=== PATIENT | female | born 2005 | race Caucasian/White ===

== ENCOUNTER 2025-03-16 00:51 | Emergency (ER) | payer SELFPAY ==
[~2025-03-16] VITALS: Ht 167.6 cm; Wt 71.6 kg
[2025-03-16 01:25] LABS: BASOPHILS % (AUTO) 0.4 % (0-1); EOSINOPHILS # (AUTO) 0.1 X10'3 (0-0.9); EOSINOPHILS % (AUTO) 1.7 % (0-6); HEMATOCRIT 39.8 % (35.0-45.0); HEMOGLOBIN 13.5 g/dl (12.0-16.0); LYMPHOCYTES # (AUTO) 1.6 X10'3 (1.1-4.8); LYMPHOCYTES % (AUTO) 26.2 % (21-51); MEAN CORPUSCULAR HEMOGLOBIN 30.8 PG (27.0-31.0); MEAN CORPUSCULAR VOLUME 90.5 FL (78-98); MEAN PLATELET VOLUME 7.5 FL (7.4-10.4); MONOCYTES # (AUTO) 0.6 X10'3 (0-0.9); NEUTROPHILS # (AUTO) 3.9 X10'3 (1.8-7.7); NEUTROPHILS % (AUTO) 62.7 % (42-75); PLATELET COUNT 201 X10'3 (140-440); RED CELL DISTRIBUTION WIDTH 12.5 % (11.5-14.5); WHITE BLOOD COUNT 6.3 X10'3 (4.5-11.0)
[2025-03-16 01:54] LABS: URINE HCG POSITIVE (NEG)
[2025-03-16 01:55] LABS: BILIRUBIN,URINE NEGATIVE (Neg); CLARITY,URINE CLOUDY (Clear); COLOR,URINE YELLOW (Yellow); GLUCOSE, URINE NEGATIVE (Neg); KETONES,URINE NEGATIVE (Neg); LEUKOCYTE ESTERASE ,URINE LARGE (Neg); NITRITES, URINE NEGATIVE (Neg); OCCULT BLOOD,URINE SMALL (Neg); PROTEIN,URINE NEGATIVE (Neg); UROBILINOGEN,URINE 0.2 E.U/dL (0.2-1.0)
[2025-03-16 02:04] LABS: ALANINE AMINOTRANSFERASE 39 U/L (12-78); ALBUMIN/GLOBULIN RATIO 0.9 (1.1-1.5); ALKALINE PHOSPHATASE 89 IU/L (46-116); ANION GAP 7 (8-16); ASPARTATE AMINO TRANSFERASE 35 U/L (10-37); BILIRUBIN,TOTAL 0.3 MG/DL (0.1-1.0); BLOOD UREA NITROGEN 7 MG/DL (7-18); BUN/CREATININE RATIO 9.6 (10.0-20.0); CHLORIDE 107 MMOL/L (99-107); CREATININE 0.73 MG/DL (0.40-0.90); GLUCOSE 94 MG/DL (70-104); LIPASE 27 U/L (16-77); POTASSIUM 3.7 MMOL/L (3.5-5.1); SODIUM 140 MMOL/L (135-145); TOTAL CARBON DIOXIDE 25.7 MMOL/L (24-32); TOTAL PROTEIN 6.3 G/DL (6.4-8.2); eCRCL 114 ML/MIN; eGFR > 90 ML/MIN
[2025-03-16 02:09] LABS: UA COLLECTION TYPE CLN CATCH MIDSTREAM
[2025-03-16 02:15] LABS: BACTERIA,URINE 2+ /HPF (Neg); SQUAMOUS EPITHELIAL CELL,UR MANY /LPF (FEW); WBC,URINE 20-30 /HPF (0-4)
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
[2025-03-16 04:38] LABS: BETA HCG,QUANTITATIVE 2973 mIU/ml
[2025-03-16 04:38] LABS: BILIRUBIN,URINE NEGATIVE (Neg); CLARITY,URINE SLIGHTLY CLOUDY (Clear); COLOR,URINE YELLOW (Yellow); GLUCOSE, URINE NEGATIVE (Neg); KETONES,URINE NEGATIVE (Neg); LEUKOCYTE ESTERASE ,URINE MODERATE (Neg); NITRITES, URINE NEGATIVE (Neg); OCCULT BLOOD,URINE SMALL (Neg); PROTEIN,URINE NEGATIVE (Neg); UROBILINOGEN,URINE 0.2 E.U/dL (0.2-1.0)
[2025-03-16 04:45] LABS: UA COLLECTION TYPE CLN CATCH MIDSTREAM
[2025-03-16 04:49] LABS: BACTERIA,URINE 1+ /HPF (Neg); SQUAMOUS EPITHELIAL CELL,UR MANY /LPF (FEW)
[2025-03-16 04:50] LABS: TRANSITIONAL EPI CELLS,URINE FEW /HPF
--- NOTE | 2025-03-16 05:43 | RADIOLOGY REPORT ---
EXAM: US Abdomen Limited, Right Upper Quadrant CLINICAL INDICATION: bleeding in TECHNIQUE: Real-time ultrasound of the right upper quadrant with image documentation. COMPARISON: None FINDINGS: LIVER: Liver measures up to 16.47 cm. Fatty infiltration of the liver. No intrahepatic bile duct dilation. GALLBLADDER: Negative Varner's sign was reported by the sociology adjunct instructor. No gallstones. COMMON BILE DUCT: Unremarkable as visualized. No stones. No dilation. Common bile duct measures 0.39 cm in diameter. PANCREAS: Unremarkable as visualized. RIGHT KIDNEY: Right kidney measures up to 10.61 cm. No stones. No hydronephrosis. OTHER FINDINGS: . . IMPRESSION: Fatty infiltration of the liver.
[2025-03-16 07:53] VITALS: BP 102/58; PULSE 85; RESP 16; TEMP 98.5; O2SAT 100
--- NOTE | 2025-03-16 08:17 | RADIOLOGY REPORT ---
OB ULTRASOUND <14 WEEKS: HISTORY: bleeding in preg TECHNIQUE: Multiple real-time grayscale sonographic images of the pelvis with duplex Doppler color f low, spectral and M-mode analysis. TRANSDUCERS: transabdominal and transvaginal FINDINGS: The uterus measures 8.0 x 6.1 x 4.4 cm. The cervix not well visualized. Right ovary measures 3.3 x 2.7 x 3.0 cm with normal Doppler color flow. There is a corpus luteal cys t in the right ovary which measures 1 cm. Left ovary measures 3.4 x 2.4 x 2.4 cm with normal Doppler color flow. There is a possible corpus merry teal cyst in the left ovary measuring 1.7 cm. Intrauterine gestational sac measures 0.6 cm. No pole or heart rate detected at this time . IMPRESSION: Intrauterine gestational sac measures 0.6 cm. No pole or heart rate detected at this time . Possible corpus luteal cyst in the bilateral ovaries.
== END 2025-03-16 07:50 | disposition home or self-care (01) ==
LOC: ER 00:51
DX: O99.611 Diseases of the digestive system complicating pregnancy, first trimester (principal); Z3A.00 Weeks of gestation of pregnancy not specified
CPT/HCPCS: 36415; 76700; 76801; 76830; 80053; 81001; 81025; 83690; 84145; 84702; 85025; 93976; 99285